=== PATIENT | male | born 1935 | race Caucasian/White ===

== ENCOUNTER 2020-07-04 22:01 | Inpatient (IN) | payer MEDICARE ==
[~2020-07-04] VITALS: Ht 180.3 cm; Wt 103.8 kg
[~2020-07-04 22:01] MED LIST: ASPI81TA45 PO; ATOR-2 PO; CEFD300C37 PO; DOXY100T PO; FERR324T5 PO; FLUT1BLS INH; FLUT1DIS3 INH; FURO40TA6 PO; IPRA3AMP30 NPPB; LISI5TAB7 PO; METO25TA35 PO; NITR0.4T41 SL; PANT40TA5 PO; POTA20PA25 PO; PRED5TAB PO; SUCR1ORA5 PO; TIOT18CA INH; TRIA15CR2 TP
[2020-07-04] MEDS ORDERED: NITROGLYCERIN/D5W PMX 250 ML IV PRN (22:04)
[2020-07-04] MEDS ORDERED: ONDANSETRON 2MG/ML, 2ML ONE (22:12)
[2020-07-04] MEDS ORDERED: NITROGLYCERIN/D5W PMX 250 ML ONE (22:12)
[2020-07-04] MEDS ORDERED: MORPHINE SULFATE 4 MG/ML, 1ML ONE (22:12)
[2020-07-04 22:15] LABS: BASOPHILS # (AUTO) 0.01 x10^3/uL (0-0.1); BASOPHILS % (AUTO) 0 % (0-1); EOSINOPHILS # (AUTO) 0.03 x10^3/uL (0-0.4); EOSINOPHILS % (AUTO) 0 % (1-7); LYMPHOCYTES # (AUTO) 0.83 x10^3/uL (1-3.4); LYMPHOCYTES % (AUTO) 7 % (22-44); MD NO; MEAN CORPUSCULAR HEMOGLOBIN 25.5 pg (27.5-34.5); MEAN CORPUSCULAR HGB CONC 31.2 g/dL (33.2-36.2); MEAN CORPUSCULAR VOLUME 81.7 fL (81-97); MEAN PLATELET VOLUME 8.1 fL (7.4-10.4); MONOCYTES % (AUTO) 6 % (2-9); NEUTROPHILS # (AUTO) 10.76 x10^3/uL (1.8-6.8); NEUTROPHILS % (AUTO) 87 % (42-75); PLATELET COUNT 280 x10^3/uL (130-400); RED BLOOD COUNT 3.12 x10^6/uL (4.38-5.82); RED CELL DISTRIBUTION WIDTH 15.7 % (9.4-14.8)
[2020-07-04] MEDS ORDERED: METOPROLOL 1 MG/ML, 5ML ONE ×2 (22:18→22:38)
[2020-07-04 22:27] LABS: ALANINE AMINOTRANSFERASE 11 U/L (12-78); ALBUMIN 2.9 g/dL (3.4-5.0); ANION GAP 7 mmol/L (5-15); CALCIUM 8.6 mg/dL (8.5-10.1); CHLORIDE 108 mmol/L (98-107)
[2020-07-04] MEDS ORDERED: MORPHINE SULFATE 4 MG/ML, 1ML IVPush PRN (22:30)
[2020-07-04] MEDS ORDERED: ONDANSETRON 2MG/ML, 2ML IVPush ONE (22:30)
[2020-07-04] MEDS ORDERED: METOPROLOL 1 MG/ML, 5ML IVPush ONE ×2 (22:30→23:00)
[2020-07-04 22:32] LABS: ALKALINE PHOSPHATASE 65 U/L (45-117); BILIRUBIN,TOTAL 0.2 mg/dL (0.2-1.0); TOTAL PROTEIN 5.8 g/dL (6.4-8.2); TROPONIN I 0.059 ng/mL (0.000-0.045)
[2020-07-04 22:43] LABS: INTERNATIONAL NORMALIZED RATIO 1.01 (0.93-1.1); PROTHROMBIN TIME 10.4 Seconds (9.6-11.5)
--- NOTE | 2020-07-04 23:07 | NUR ---
SUMMARY NOTE: THIS PT WAS SHERIF JOSHI, COMING FROM HOME, WHEN CP STARTED ABOUT 2044. PT STATES HE WAS FEELING SOB BEFORE DINNER SO TOOK A BREATHING TREATMENT, "I STARTED COUGHING AND GOT PHLEM UP, BUT THEN AFTER DINNER I STARTED GETTING PAIN AND I THREW UP." PT HAS A HX OF COPD AND AN N-STEMI ON 06/13/2020. PT ARRIVES IN 08/04 PAIN, TACHY IN 100S. EKG ON ARRIVAL. 2 DOSE OF METOPROLOL. PT STATES CP RESOLVED TO A 12/04. PT CONVERSING WITH THIS RN. A&OX4. BED RAIL UP, CALL LIGHT IN REACH AND DAUGHTER AT BEDSIDE.
[2020-07-05] MEDS ORDERED: morphine SULFATE 10 MG/ML, 1ML IV PRN
[2020-07-05] MEDS ORDERED: NITROGLYCERIN/D5W PMX 250 ML IV PRN
--- NOTE | 2020-07-05 00:05 | NUR ---
PT HAS REMAINED IN BED, RESPIRATIONS EVEN AND UNLABORED. PROVIDED WITH ICE CHIPS, ALL NEEDS MET.
--- NOTE | 2020-07-05 00:30 | NUR ---
FIRST ATTEMPT TO CALL REPORT TO THE FLOOR AT THIS TIME.
--- NOTE | 2020-07-05 00:35 | NUR ---
REPORT GIVEN TO PERLA BULL RN.
[2020-07-05 00:43] LABS: CHOLESTEROL, TOTAL 132 mg/dL (140-239); TRIGLYCERIDES 119 mg/dL (50-200); VLDL CHOLESTEROL 24 mg/dL (0-25)
[2020-07-05 00:46] LABS: CHOL/HDL RATIO 3.1; HDL CHOL % 32 % (26-37); HDL CHOLESTEROL (DIRECT) 42 mg/dL (40-60); LDL CHOLESTEROL,CALCULATED 66 mg/dL (54-169); LDL/HDL RATIO 1.6 (0.5-3.0)
[2020-07-05] MEDS ORDERED: HEPARIN 5,000 UNITS/ML, 1ML IV ONE (01:30)
[2020-07-05] MEDS: HEPARIN 25,000 UNITS/250ML PMX 250 ML IV PRN ×2 (01:31→23:04)
[2020-07-05 04:00] VITALS: BP 106/48
[2020-07-05] MEDS: ASPIRIN 81 MG TABLET EC PO SCH (06:32)
[2020-07-05] MEDS ORDERED: POTASSIUM CHLORIDE 20 MEQ TAB.ER.PRT PO ONE (07:00)
[2020-07-05] MEDS: LISINOPRIL 5 MG TABLET PO SCH ×2 (08:45→20:30)
[2020-07-05] MEDS: METOPROLOL TARTRATE 25 MG TAB PO SCH ×2 (08:45→20:30)
[2020-07-05] MEDS: SUCRALFATE 1 GM/10 ML UDC PO SCH ×3 (08:52→20:30)
[2020-07-05] MEDS ORDERED: PANTOPRAZOLE 40MG TABLET PO SCH (09:00)
[2020-07-05] MEDS ORDERED: FLUTICASONE/VILANTEROL 200-25MCG/INH INH SCH (09:00)
[2020-07-05] MEDS: SODIUM CHLORIDE FLUSH 10ML SYR IVF SCH ×2 (09:00→20:31)
[2020-07-05] MEDS: HEPARIN 5,000 UNITS/ML, 1ML IV PRN ×2 (09:24→22:10)
[2020-07-05 10:25] VITALS: BP 120/64
[2020-07-05] MEDS: FLUTICASONE/VILANTEROL 200-25MCG/INH INH SCH (10:45)
[2020-07-05] MEDS: TIOTROPIUM BROMIDE 18 MCG/INH INH SCH (10:45)
[2020-07-05 10:54] VITALS: BP 111/45
[2020-07-05 11:40] VITALS: BP 113/53
[2020-07-05 12:17] VITALS: BP 120/60
[2020-07-05 19:03] VITALS: BP 139/67
[2020-07-05] MEDS: PANTOPRAZOLE 40 MG IV IVPush SCH (20:31)
[2020-07-05] MEDS ORDERED: ATORVASTATIN 80 MG TABLET PO SCH (21:00)
[2020-07-06] VITALS (8 sets, daily range): BP systolic 94–107; BP diastolic 52–69
[2020-07-06 04:55] LABS: BASOPHILS # (AUTO) 0.04 x10^3/uL (0-0.1); BASOPHILS % (AUTO) 1 % (0-1); EOSINOPHILS # (AUTO) 0.07 x10^3/uL (0-0.4); EOSINOPHILS % (AUTO) 1 % (1-7); LYMPHOCYTES # (AUTO) 0.91 x10^3/uL (1-3.4); LYMPHOCYTES % (AUTO) 16 % (22-44); MD NO; MEAN CORPUSCULAR HEMOGLOBIN 25.9 pg (27.5-34.5); MEAN CORPUSCULAR HGB CONC 30.9 g/dL (33.2-36.2); MEAN CORPUSCULAR VOLUME 83.8 fL (81-97); MEAN PLATELET VOLUME 8.2 fL (7.4-10.4); MONOCYTES # (AUTO) 0.57 x10^3/uL (0.2-0.8); MONOCYTES % (AUTO) 10 % (2-9); NEUTROPHILS # (AUTO) 3.98 x10^3/uL (1.8-6.8); NEUTROPHILS % (AUTO) 71 % (42-75); PLATELET COUNT 199 x10^3/uL (130-400); RED BLOOD COUNT 2.84 x10^6/uL (4.38-5.82); RED CELL DISTRIBUTION WIDTH 15.5 % (9.4-14.8)
[2020-07-06 04:57] LABS: ANION GAP 2 mmol/L (5-15); CALCIUM 8.2 mg/dL (8.5-10.1); CHLORIDE 111 mmol/L (98-107); CREATININE 1.04 mg/dL (0.7-1.3)
[2020-07-06] MEDS: ASPIRIN 81 MG TABLET EC PO SCH (05:52)
[2020-07-06] MEDS: FLUTICASONE/VILANTEROL 200-25MCG/INH INH SCH (09:00)
[2020-07-06] MEDS: SODIUM CHLORIDE FLUSH 10ML SYR IVF SCH (09:00)
[2020-07-06] MEDS: SUCRALFATE 1 GM/10 ML UDC PO SCH ×3 (09:00→15:23)
[2020-07-06] MEDS: TIOTROPIUM BROMIDE 18 MCG/INH INH SCH (09:00)
[2020-07-06] MEDS: LISINOPRIL 5 MG TABLET PO SCH (09:05)
[2020-07-06] MEDS: PANTOPRAZOLE 40 MG IV IVPush SCH (09:05)
[2020-07-06] MEDS: METOPROLOL TARTRATE 25 MG TAB PO SCH (09:05)
== END 2020-07-06 15:58 | disposition home or self-care (01) | DRG 281 ==
LOC: ED 23:35 → EDIP 23:44 → CCU 07-05 00:43 → 5SO 07-05 16:02 → DCLOUNGE 07-06 15:38
PROVIDERS: ADMIT Family Medicine; ATTEND Family Medicine
PROC: 30233N1 Transfusion of Nonautologous Red Blood Cells into Peripheral Vein, Percutaneous Approach (ICD-10-PCS; 2020-07-05)
PROC: 30233N1 Transfusion of Nonautologous Red Blood Cells into Peripheral Vein, Percutaneous Approach (ICD-10-PCS; principal; 2020-07-06)
DX: I21.4 Non-ST elevation (NSTEMI) myocardial infarction (principal); I50.32 Chronic diastolic (congestive) heart failure; J96.11 Chronic respiratory failure with hypoxia; I25.110 Atherosclerotic heart disease of native coronary artery with unstable angina pectoris; J44.9 Chronic obstructive pulmonary disease, unspecified; D64.9 Anemia, unspecified; I11.0 Hypertensive heart disease with heart failure; I50.9 Heart failure, unspecified; I73.9 Peripheral vascular disease, unspecified; F17.210 Nicotine dependence, cigarettes, uncomplicated; I08.0 Rheumatic disorders of both mitral and aortic valves; L05.91 Pilonidal cyst without abscess; I25.2 Old myocardial infarction; Z82.49 Family history of ischemic heart disease and other diseases of the circulatory system; Z86.73 Personal history of transient ischemic attack (TIA), and cerebral infarction without residual deficits; Z91.14 Patient's other noncompliance with medication regimen; Z91.19 Patient's noncompliance with other medical treatment and regimen; Z99.81 Dependence on supplemental oxygen; Z79.82 Long term (current) use of aspirin; Z79.891 Long term (current) use of opiate analgesic
CPT/HCPCS: 36415; 71045; 80048; 80053; 80061; 83880; 84484; 85014; 85018; 85025; 85520; 85610; 85730; 86850; 86900; 86923; 87081; 93005; 96374; 96375; 99291; G0378; J1644; C9113; P9016

== ENCOUNTER 2020-07-13 12:18 | Inpatient (IN) | payer MEDICARE ==
[2020-07-13] VITALS (7 sets, daily range): BP systolic 112–131; BP diastolic 40–67
[~2020-07-13] VITALS: Ht 180.3 cm; Wt 103.4 kg
--- NOTE | 2020-07-13 12:54 | NUR ---
PT CAME IN CO OF CP THAT STARTED LAST NIGHT. PT DESCRIBES THE PAIN A PRESSURE THAT HURTS WHEN SHE SWALLOWS DOWN HIS CHEST. PT WAS HERE LAST WEEK FOR BEING ANEMIC. PT WAS TO RECIEVE 2 UNITS OF BLOOD, BUT ONLY GOT 1 BEFORE LEAVING AMA. PT SAYS HE GETS THIS PAIN IN HIS CHEST WHEN HIS "BLOOD IS LOW". DENIES ABD PAIN OR BLACK TARRY STOOL. PT RESTING IN [facility]. EKG COMPLETE. CONNECTED TO MONITORING EQUIPMENT. BLANKET PROVIDED.
[2020-07-13] MEDS ORDERED: ASPIRIN 81 MG TABLET CHEW ONE (13:24)
[2020-07-13] MEDS ORDERED: ALBUTEROL/IPRATROPIUM 2.5MG/0.5MG, 3 ML ONE (13:24)
[2020-07-13] MEDS ORDERED: ASPIRIN 81 MG TABLET CHEW PO ONE (13:30)
[2020-07-13] MEDS ORDERED: SODIUM CHLORIDE FLUSH 10ML SYR IVF ONE (13:30)
[2020-07-13] MEDS ORDERED: ALBUTEROL/IPRATROPIUM 2.5MG/0.5MG, 3 ML NPPB ONE (13:30)
--- NOTE | 2020-07-13 13:37 | NUR ---
PT MEDICATED PER JAN. RESTING IN [facility]. IV STARTED. LABS DRAWN.
[2020-07-13 13:44] LABS: BASOPHILS # (AUTO) 0.02 x10^3/uL (0-0.1); BASOPHILS % (AUTO) 0 % (0-1); EOSINOPHILS # (AUTO) 0.03 x10^3/uL (0-0.4); EOSINOPHILS % (AUTO) 0 % (1-7); LYMPHOCYTES # (AUTO) 0.64 x10^3/uL (1-3.4); LYMPHOCYTES % (AUTO) 8 % (22-44); MD NO; MEAN CORPUSCULAR HEMOGLOBIN 26.2 pg (27.5-34.5); MEAN CORPUSCULAR VOLUME 84.5 fL (81-97); MEAN PLATELET VOLUME 7.7 fL (7.4-10.4); MONOCYTES # (AUTO) 0.74 x10^3/uL (0.2-0.8); MONOCYTES % (AUTO) 9 % (2-9); NEUTROPHILS # (AUTO) 6.45 x10^3/uL (1.8-6.8); NEUTROPHILS % (AUTO) 82 % (42-75); PLATELET COUNT 297 x10^3/uL (130-400); RED BLOOD COUNT 2.82 x10^6/uL (4.38-5.82); RED CELL DISTRIBUTION WIDTH 17.6 % (9.4-14.8)
[2020-07-13 13:56] LABS: ALBUMIN 3.1 g/dL (3.4-5.0); ANION GAP 6 mmol/L (5-15); CALCIUM 8.9 mg/dL (8.5-10.1); CHLORIDE 107 mmol/L (98-107)
[2020-07-13 14:02] LABS: CREATININE 1.05 mg/dL (0.7-1.3)
[2020-07-13 14:04] LABS: TROPONIN I 0.315 ng/mL (0.000-0.045)
--- NOTE | 2020-07-13 14:41 | NUR ---
BLOOD INFUSING AT THIS TIME. DOUBLE RN CHECK COMPLETE. PT TOLERATING WELL
--- NOTE | 2020-07-13 14:55 | NUR ---
PT REMAINS ASYMPTOMATIC
[2020-07-13] MEDS ORDERED: MELATONIN 5 MG TABLET PO PRN (15:30)
[2020-07-13] MEDS ORDERED: ONDANSETRON ODT 4 MG PO PRN (15:30)
[2020-07-13] MEDS ORDERED: BUTALB/APAP/CAFFEINE 50MG/325MG/40MG PO PRN (15:30)
[2020-07-13] MEDS ORDERED: ONDANSETRON 2MG/ML, 2ML IVPush PRN (15:30)
[2020-07-13] MEDS ORDERED: LABETALOL 5MG/ML, 20ML IVPush PRN (15:30)
[2020-07-13] MEDS ORDERED: BACLOFEN 10 MG TABLET PO PRN (15:30)
[2020-07-13] MEDS ORDERED: GUAIFENESIN/DM 200-20MG, 10ML UDC PO PRN (15:30)
[2020-07-13] MEDS ORDERED: hydrALAzine 20 MG/ML, 1ML IVPush PRN (15:30)
--- NOTE | 2020-07-13 15:55 | NUR ---
1ST UNIT COMPLETE. PT TOLERATED WELL
--- NOTE | 2020-07-13 16:16 | NUR ---
2ND UNIT OF BLOOD STARTED. VERIFIED BY 2ND RN. PT TOLERATING WELL
[2020-07-13 20:16] LABS: BASOPHILS # (AUTO) 0.01 x10^3/uL (0-0.1); BASOPHILS % (AUTO) 0 % (0-1); EOSINOPHILS # (AUTO) 0.02 x10^3/uL (0-0.4); EOSINOPHILS % (AUTO) 0 % (1-7); LYMPHOCYTES # (AUTO) 0.86 x10^3/uL (1-3.4); LYMPHOCYTES % (AUTO) 11 % (22-44); MD NO; MEAN CORPUSCULAR HEMOGLOBIN 27.2 pg (27.5-34.5); MEAN CORPUSCULAR HGB CONC 32.2 g/dL (33.2-36.2); MEAN CORPUSCULAR VOLUME 84.3 fL (81-97); MEAN PLATELET VOLUME 7.4 fL (7.4-10.4); MONOCYTES # (AUTO) 0.64 x10^3/uL (0.2-0.8); MONOCYTES % (AUTO) 8 % (2-9); NEUTROPHILS % (AUTO) 81 % (42-75); PLATELET COUNT 251 x10^3/uL (130-400); RED BLOOD COUNT 3.14 x10^6/uL (4.38-5.82); RED CELL DISTRIBUTION WIDTH 16.2 % (9.4-14.8)
[2020-07-14 02:01] VITALS: BP 105/56
[2020-07-14 05:38] LABS: BASOPHILS # (AUTO) 0.02 x10^3/uL (0-0.1); BASOPHILS % (AUTO) 0 % (0-1); EOSINOPHILS # (AUTO) 0.05 x10^3/uL (0-0.4); EOSINOPHILS % (AUTO) 1 % (1-7); LYMPHOCYTES % (AUTO) 12 % (22-44); MD NO; MEAN CORPUSCULAR HEMOGLOBIN 26.2 pg (27.5-34.5); MEAN CORPUSCULAR HGB CONC 31.2 g/dL (33.2-36.2); MEAN CORPUSCULAR VOLUME 83.9 fL (81-97); MEAN PLATELET VOLUME 7.9 fL (7.4-10.4); MONOCYTES # (AUTO) 0.61 x10^3/uL (0.2-0.8); MONOCYTES % (AUTO) 9 % (2-9); NEUTROPHILS # (AUTO) 5.15 x10^3/uL (1.8-6.8); NEUTROPHILS % (AUTO) 78 % (42-75); PLATELET COUNT 245 x10^3/uL (130-400); RED BLOOD COUNT 2.96 x10^6/uL (4.38-5.82); RED CELL DISTRIBUTION WIDTH 16.5 % (9.4-14.8)
[2020-07-14 05:45] LABS: ALBUMIN 2.8 g/dL (3.4-5.0); ANION GAP 5 mmol/L (5-15); CALCIUM 8.4 mg/dL (8.5-10.1); CHLORIDE 110 mmol/L (98-107)
[2020-07-14 05:52] LABS: ALANINE AMINOTRANSFERASE 12 U/L (12-78); ALKALINE PHOSPHATASE 54 U/L (45-117); BILIRUBIN,TOTAL 0.5 mg/dL (0.2-1.0); CREATININE 0.99 mg/dL (0.7-1.3); TOTAL PROTEIN 5.4 g/dL (6.4-8.2); TROPONIN I 0.208 ng/mL (0.000-0.045)
[2020-07-14 06:48] VITALS: BP 167/77
[2020-07-14 12:51] VITALS: BP 119/68
[2020-07-14] MEDS ORDERED: GOLYTELY 4,000ML ORAL.SOL PO ONE (19:00)
[2020-07-14 19:15] VITALS: BP 133/65
[2020-07-15] VITALS (7 sets, daily range): BP systolic 94–131; BP diastolic 51–79
[2020-07-15] MEDS: ACETAMINOPHEN 325 MG TABLET PO PRN ×3 (00:21→11:47)
[2020-07-15] MEDS ORDERED: NITROGLYCERIN 0.4 MG BOTTLE (25 TABS) SL PRN (02:00)
[2020-07-15] MEDS ORDERED: NITROGLYCERIN 0.4 MG/SPRAY SL PRN (02:00)
[2020-07-15] MEDS ORDERED: NITROGLYCERIN 0.4 MG BOTTLE (25 TABS) SL ONE (02:06)
[2020-07-15 06:38] LABS: MEAN CORPUSCULAR HEMOGLOBIN 26.6 pg (27.5-34.5); MEAN CORPUSCULAR HGB CONC 31.9 g/dL (33.2-36.2); MEAN CORPUSCULAR VOLUME 83.3 fL (81-97); MEAN PLATELET VOLUME 7.6 fL (7.4-10.4); PLATELET COUNT 211 x10^3/uL (130-400); RED BLOOD COUNT 2.58 x10^6/uL (4.38-5.82); RED CELL DISTRIBUTION WIDTH 17.3 % (9.4-14.8)
[2020-07-15 07:28] LABS: BASOPHILS # (AUTO) 0.04 x10^3/uL (0-0.1); BASOPHILS % (AUTO) 1 % (0-1); EOSINOPHILS # (AUTO) 0.05 x10^3/uL (0-0.4); EOSINOPHILS % (AUTO) 1 % (1-7); LYMPHOCYTES % (AUTO) 13 % (22-44); MD SCAN; MONOCYTES # (AUTO) 0.49 x10^3/uL (0.2-0.8); MONOCYTES % (AUTO) 11 % (2-9); NEUTROPHILS # (AUTO) 3.48 x10^3/uL (1.8-6.8); NEUTROPHILS % (AUTO) 75 % (42-75)
[2020-07-15] MEDS ORDERED: CHLORHEXIDINE 15 ML UDC MM ONE (08:00)
[2020-07-15] MEDS ORDERED: PROPOFOL 50 ML ONE (09:46)
[2020-07-15] MEDS ORDERED: ROCURONIUM 10 MG/ML,10ML ONE (10:42)
[2020-07-15] MEDS ORDERED: SUCCINYLCHOLINE 20 MG/ML, 10ML ONE (10:42)
[2020-07-15] MEDS ORDERED: FENTANYL PF 100 MCG/2ML ONE (11:05)
[2020-07-15] MEDS ORDERED: CEFAZOLIN 1,000 MG ONE (11:34)
[2020-07-15] MEDS ORDERED: ONDANSETRON 2MG/ML, 2ML ONE ×2 (11:34→11:44)
[2020-07-15] MEDS ORDERED: PROPOFOL 10 MG/ML, 20ML ONE (11:34)
[2020-07-15] MEDS ORDERED: DEXAMETHASONE 4 MG/ML, 1ML ONE (11:34)
[2020-07-15] MEDS ORDERED: ACETAMINOPHEN 650 MG/20.3 ML UDC ONE (11:44)
[2020-07-15 14:13] LABS: MEAN CORPUSCULAR HEMOGLOBIN 26.8 pg (27.5-34.5); MEAN CORPUSCULAR HGB CONC 31.8 g/dL (33.2-36.2); MEAN CORPUSCULAR VOLUME 84.2 fL (81-97); MEAN PLATELET VOLUME 8.1 fL (7.4-10.4); PLATELET COUNT 241 x10^3/uL (130-400); RED BLOOD COUNT 2.99 x10^6/uL (4.38-5.82); RED CELL DISTRIBUTION WIDTH 17.1 % (9.4-14.8)
[2020-07-15 14:38] LABS: BASOPHILS # (AUTO) 0.02 x10^3/uL (0-0.1); BASOPHILS % (AUTO) 0 % (0-1); EOSINOPHILS # (AUTO) 0.01 x10^3/uL (0-0.4); EOSINOPHILS % (AUTO) 0 % (1-7); LYMPHOCYTES % (AUTO) 6 % (22-44); MD SCAN; MONOCYTES # (AUTO) 0.53 x10^3/uL (0.2-0.8); MONOCYTES % (AUTO) 6 % (2-9); NEUTROPHILS # (AUTO) 7.27 x10^3/uL (1.8-6.8); NEUTROPHILS % (AUTO) 87 % (42-75)
[2020-07-15] MEDS ORDERED: PANT40TA5 PO (14:57)
[2020-07-15] MEDS ORDERED: SUCR1ORA5 PO (14:57)
== END 2020-07-15 16:49 | disposition home or self-care (01) | DRG 378 ==
LOC: ED 12:54 → EDIP 15:06 → 5SO 16:32
PROVIDERS: ADMIT Family Medicine; ATTEND Family Medicine
PROC: 30233N1 Transfusion of Nonautologous Red Blood Cells into Peripheral Vein, Percutaneous Approach (ICD-10-PCS; 2020-07-13)
PROC: 0W3P8ZZ Control Bleeding in Gastrointestinal Tract, Via Natural or Artificial Opening Endoscopic (ICD-10-PCS; 2020-07-15)
PROC: 0DBC8ZX Excision of Ileocecal Valve, Via Natural or Artificial Opening Endoscopic, Diagnostic (ICD-10-PCS; 2020-07-15)
PROC: 0DB98ZX Excision of Duodenum, Via Natural or Artificial Opening Endoscopic, Diagnostic (ICD-10-PCS; principal; 2020-07-15 10:00)
DX: K31.811 Angiodysplasia of stomach and duodenum with bleeding (principal); D62 Acute posthemorrhagic anemia; K57.91 Diverticulosis of intestine, part unspecified, without perforation or abscess with bleeding; I50.9 Heart failure, unspecified; I11.0 Hypertensive heart disease with heart failure; J44.9 Chronic obstructive pulmonary disease, unspecified; Z20.828 Contact with and (suspected) exposure to other viral communicable diseases; F17.210 Nicotine dependence, cigarettes, uncomplicated; I25.10 Atherosclerotic heart disease of native coronary artery without angina pectoris; Z66 Do not resuscitate; I25.2 Old myocardial infarction; I73.9 Peripheral vascular disease, unspecified; K64.4 Residual hemorrhoidal skin tags; D12.0 Benign neoplasm of cecum; K31.9 Disease of stomach and duodenum, unspecified; Z80.0 Family history of malignant neoplasm of digestive organs; Z86.73 Personal history of transient ischemic attack (TIA), and cerebral infarction without residual deficits; Z87.11 Personal history of peptic ulcer disease
CPT/HCPCS: 36415; 71045; 80048; 80053; 82040; 83735; 83880; 84484; 85025; 86850; 86900; 86923; 87635; 88305; 93005; G0378; J0690; J1100; J2405; J2704; J3010; J0330; P9016